=== PATIENT | female | born 1975 | race Caucasian/White ===

== ENCOUNTER 2020-12-14 14:24 | Emergency (ER) | payer OTHER ==
[~2020-12-14] VITALS: Ht 165.1 cm; Wt 93.3 kg
--- NOTE | 2020-12-14 14:31 | PHYS DOC ---
Adult General Chief Complaint Chief Complaint: SHORTNESS OF BREATH HPI HPI Patient is a 45-year-old female complaining of shortness of breath. Reports onset was approximately 5 days ago. She lives in a household with and numerous kids, reports majority of her kids started becoming symptomatic 1 week ago when she started having similar upper respiratory symptoms a couple days afterwards. Reports she took all of her children to on [facility] and all were diagnosed with COVID-19. She reports today being more short of breath than usual prompting her to visit local urgent care where she had a positive rapid COVID-19 test. Patient returned home and tried providing supportive care to her self but development of substernal chest pressure that radiated to her left posterior shoulder blade concerned her and prompting her to come in for evaluation. She is not vaccinated against COVID-19. She admits history of dermatomyositis but is not on any Biologics or other immunocompromising drugs. She also admits history of factor V Leiden and is hypercoagulable, she takes 81 mg aspirin daily. She reports being otherwise at her baseline health, no recent medication changes or known sick contacts but does admit moving [place]country from [facility] recently Review of Systems Review of Systems Fourteen body systems of review of systems have been reviewed. See HPI for pertinent positives and negative responses, other oliveira all other systems are negative, non-pertinent or non-contributory Physical Exam Physical Exam Constitutional: Well developed, well nourished, no acute distress, non-toxic appearance. HENT: Normocephalic, atraumatic, bilateral external ears normal, oropharynx moist, no oral exudates, nose normal. Eyes: PERRLA, EOMI, conjunctiva normal, no discharge. Neck: Normal range of motion, no tenderness, supple, no stridor. Cardiovascular: Heart rate regular, sinus rhythm, no murmurs rubs or gallops Lungs & Thorax: Bilateral breath sounds clear to auscultation Abdomen: Bowel sounds normal, soft, no tenderness, no masses, no pulsatile masses. Nonsurgical abdomen, no peritoneal signs Skin: Warm, dry, no erythema, no rash. Back: No tenderness, no CVA tenderness. Extremities: No tenderness, no cyanosis, no clubbing, ROM intact, no edema. Neurologic: Alert and oriented X 3, grossly normal motor & sensory function, no focal deficits noted. Psychologic: Affect normal, judgement normal, mood normal. Current Patient Data Vital Signs Vital Signs Date Time Temp Pulse Resp B/P (MAP) Pulse Ox O2 Delivery O2 Flow Rate FiO2 12/14/20 14:34 99.0 92 22 184/112 (136) 100 Room Air Vital Signs Date Time Temp Pulse Resp B/P (MAP) Pulse Ox O2 Delivery O2 Flow Rate FiO2 12/14/20 14:34 99.0 92 22 184/112 (136) 100 Room Air Lab Results Laboratory Tests Test 12/14/20 15:05 Sodium Level 139 mmol/L Potassium Level 3.3 mmol/L Chloride Level 100 mmol/L Carbon Dioxide Level 31 mmol/L Anion Gap 8 Blood Urea Nitrogen 12 mg/dL Creatinine 0.9 mg/dL Estimated GFR (Cockcroft-Gault) 68.0 BUN/Creatinine Ratio 13 Glucose Level 100 mg/dL Lactic Acid Level 1.0 mmol/L Calcium Level 9.4 mg/dL Total Bilirubin 0.3 mg/dL Aspartate Amino Transf (AST/SGOT) 20 U/L Alanine Aminotransferase (ALT/SGPT) 23 U/L Alkaline Phosphatase 77 U/L Troponin I Quantitative < 0.017 ng/mL Total Protein 7.9 g/dL Albumin 4.1 g/dL Albumin/Globulin Ratio 1.1 Current Medications Medications (Trade) Dose Ordered Sig/Philip Route PRN Reason Start Time Stop Time Status Last Admin Dose Admin Aspirin (Aspirin Chewable) 162 mg 1X ONCE PO 12/14/20 15:00 12/14/20 15:01 DC 12/14/20 15:08 Nitroglycerin (Nitrostat) 0.4 mg PRN Q5MIN PRN SL CHEST PAIN 12/14/20 15:00 12/14/20 15:10 Iohexol (Omnipaque 350 Mg/ml) 100 ml 1X ONCE IV 12/14/20 15:00 12/14/20 15:02 DC EKG EKG EKG ordered and interpreted by myself at 1500 hrs. is sinus rhythm at 84 bpm, unremarkable intervals, left axis deviation, no acute ischemic findings, no STEMI Radiology/Procedures Radiology/Procedures CTA CHEST INDICATION: SHOB, COVID POSITIVE Comparison: None. TECHNIQUE: Following the uneventful administration of intravenous Contras, axial CT sections were obtained through the lungs and upper abdomen. Multiplanar reconstructions and MIP images were obtained. PQRS compliance statement: One or more of the following individualized dose reduction techniques were utilized for this examination: 1. Automated exposure control 2. Adjustment of the mA and/or kV according to patient size 3. Use of iterative reconstruction technique FINDINGS: Pulmonary arteries: No evidence of pulmonary thromboembolic disease Lungs and Airways: Mild scattered groundglass opacities. No abnormality of the central airways. Pleura: The pleural spaces are normal. Heart and Mediastinum: Right thyroid 1.6 cm nodule. No axillary or supraclavicular lymphadenopathy. No mediastinal, hilar or retrocrural lymphadenopathy. Mild cardiomegaly. No pericardial effusion. Normal caliber thoracic aorta. Aberrant origin of the right subclavian artery. Abdomen: Limited images through the upper abdomen show no abnormality of the visualized organs. Bones and Soft Tissues: The visualized bones and chest wall soft tissues are within normal limits. IMPRESSION: 1. No evidence of pulmonary thrombolic disease. 2. Mild scattered groundglass opacities, consistent with patient's history of infection. 3. Right thyroid 1.6 cm nodule could be further characterized with ultrasound if not performed previously. Electronically signed by: Jere Gonzalez MD (12/14/2020 3:47 PM) [facility] Heart Score C/O Chest Pain: Yes HEART Score for Chest Pain: HEART Score for Chest Pain Response (Comments) Value History Moderately Suspicious 1 ECG Nonspecific Repolarizatio 1 Age < 45 0 Risk Factors 1 or 2 Risk Factors 1 Troponin >1-<3x Normal Limit 1 Total 4 Risk Factors: Risk Factors: DM, Current or recent (<one month) smoker, HTN, HLP, family history of CAD, obesity. Risk Scores: Risk Factors: DM, Current or recent (<one month) smoker, HTN, HLP, family history of CAD, obesity. Course & Med Decision Making Course & Med Decision Making ABCs unremarkable. I disclosed entirety of ER findings and discussed most likely diagnosis of symptomatic COVID-19. Other diagnoses were discussed with patient such as ACS, pulmonary embolism and other emergent diagnoses but all deemed less likely causes of patient's presentation. Plan of care discussed at length with need for close outpatient follow-up to review today's ER visit stressed. Joint decision made to treat patient with azithromycin x5 days. Strict return precautions were also discussed at length with good understanding verbalized by patient. Patient voiced understanding and agreement with the plan. Patient knows to come back for repeat evaluation if concerning signs or symptoms present prior to outpatient follow-up. Hemodynamically stable, ambulatory and nontoxic appearing at time of disposition. Dragon Disclaimer Dragon Disclaimer This electronic medical record was generated, in whole or in part, using a voice recognition dictation system. Departure Departure: Impression: Primary Impression: COVID-19 Disposition: HOME / SELF CARE / HOMELESS Condition: STABLE Referrals: PCP,NO (PCP) Additional Instructions: You were seen for headache, fever, body aches, chest pain, shortness of breath, and known infection with COVID-19. Your physical exam was reassuring. Your ER work-up including CT scan of the chest was normal. Joint decision was made to start azithromycin antibiotic for your infection, you should pick this up and take 1 tablet daily for upcoming 4 days. In addition, you should self quarantine and continue providing self-care to yourself and family prioritizing good fluids such as Pedialyte and water and utilizing ibuprofen and/or Tylenol as needed for aches and pains. You should return to the ED if you develop worsening cough, shortness of breath, chest pain, or any other new or concerning symptoms. Scripts Azithromycin (AZITHROMYCIN TABLET) 250 Mg Tablet 250 MG PO DAILY for ANTI-BIOTIC, #4 TAB 0 Refills Prov: WENDY ROSALES DO 12/14/20 WENDY ROSALES DO Dec 14, 2020 14:31
[2020-12-14] MEDS ORDERED: HYDR12.58 PO (14:46)
[2020-12-14] MEDS ORDERED: AMLO-187 PO (14:46)
[2020-12-14] MEDS ORDERED: ASPIRIN CHEWABLE 81 MG TABLET. PO ONE (15:00)
[2020-12-14] MEDS ORDERED: NITROGLYCERIN SUBLINGUAL 0.4 MG BOTTLE OF 25. SL PRN (15:00)
[2020-12-14] MEDS ORDERED: IOHEXOL 350 MG/ML 100 ML VIAL. IV ONE (15:00)
--- NOTE | 2020-12-14 15:07 | EKG ---
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
[2020-12-14 15:29] LABS: CALCIUM 9.4 mg/dL (8.5-10.1); CREATININE 0.9 mg/dL (0.6-1.0); POTASSIUM 3.3 mmol/L (3.5-5.1)
[2020-12-14 15:35] LABS: ALBUMIN 4.1 g/dL (3.4-5.0); ALBUMIN/GLOBULIN RATIO 1.1 (1.0-1.7); TOTAL BILIRUBIN 0.3 mg/dL (0.2-1.0); TOTAL PROTEIN 7.9 g/dL (6.4-8.2)
[2020-12-14 15:42] LABS: BASO % 1 % (0-3); EOS % 1 % (0-3); HEMATOCRIT 39.7 % (36.0-47.0); LYMPH # 0.8 x10^3/uL (1.0-4.8); LYMPH % 27 % (24-48); MEAN CORPUSCULAR HEMOGLOBIN 25 pg (25-35); MEAN CORPUSCULAR HGB CONC 33 g/dL (31-37); MEAN CORPUSCULAR VOLUME 77 fL (79-100); MONO # 0.3 x10^3/uL (0.0-1.1); MONO % 11 % (0-9); NEUT # 1.8 x10^3uL (1.8-7.7); NEUT % 60 % (31-73); PLATELET COUNT 224 x10^3/uL (140-400); RED BLOOD COUNT 5.18 x10^6/uL (3.50-5.40); RED CELL DISTRIBUTION WIDTH 15.4 % (11.5-14.5)
--- NOTE | 2020-12-14 15:49 | RAD ---
CTA CHEST INDICATION: SHOB, COVID POSITIVE Comparison: None. TECHNIQUE: Following the uneventful administration of intravenous Contras, axial CT sections were obt ained through the lungs and upper abdomen. Multiplanar reconstructions and MIP images were obtained. PQRS compliance statement: One or more of the following individualized dose reduction techniques were utilized for this examinat ion: 1. Automated exposure control 2. Adjustment of the mA and/or kV according to patient size 3. Use of iterative reconstruction technique FINDINGS: Pulmonary arteries: No evidence of pulmonary thromboembolic disease Lungs and Airways: Mild scattered groundglass opacities. No abnormality of the central airways. Pleura: The pleural spaces are normal. Heart and Mediastinum: Right thyroid 1.6 cm nodule. No axillary or supraclavicular lymphadenopathy. N o mediastinal, hilar or retrocrural lymphadenopathy. Mild cardiomegaly. No pericardial effusion. Norm al caliber thoracic aorta. Aberrant origin of the right subclavian artery. Abdomen: Limited images through the upper abdomen show no abnormality of the visualized organs. Bones and Soft Tissues: The visualized bones and chest wall soft tissues are within normal limits. IMPRESSION: 1. No evidence of pulmonary thrombolic disease. 2. Mild scattered groundglass opacities, consistent with patient's history of infection. 3. Right thyroid 1.6 cm nodule could be further characterized with ultrasound if not performed previo usly. Electronically signed by: Jere Gonzalez MD (12/14/2020 3:47 PM) [facility]
[2020-12-14] MEDS ORDERED: AZIT250T6 PO (16:00)
[2020-12-14] MEDS ORDERED: AZITHROMYCIN 250 MG TABLET. PO ONE (16:00)
[2020-12-14 16:06] LABS: PLT ESTIMATE ADEQUATE (ADEQUATE)
[2020-12-14 16:15] VITALS: BP 139/94
== END 2020-12-14 16:31 | disposition home or self-care (01) ==
LOC: ER 14:24
DX: U07.1 COVID-19 (principal)
CPT/HCPCS: 36415; 71275; 80053; 83605; 84484; 85025; 87040; 93005; 99285